=== PATIENT | female | born 1940 | race Hispanic/Latino ===

== ENCOUNTER 2019-01-11 09:05 | Outpatient (CLI) | payer MEDICARE ==
--- NOTE | 2019-01-11 10:27 | Mammography Report ---
LEFT DIGITAL DIAGNOSTIC MAMMOGRAM WITH CAD -- 01/11/2019 LEFT LIMITED BREAST ULTRASOUND INDICATION: Abnormal density on mammography TECHNIQUE: Digital left mammographic imaging was performed. Spot compression views were obtained. Li mited ultrasound was performed. This examination was interpreted with the benefit of Computer-Aided D etection (CAD) analysis. COMPARISON: Screening mammogram 12/07/2018, diagnostic mammogram 01/05/2019, prior screening mammograms 2017, 2017, and 2016 FINDINGS: Breast Density: The breasts are heterogeneously dense, which may obscure small masses. There is no evidence of dominant mass, suspicious calcifications or architectural distortion in the l eft breast. The density of concern appears to resolve with additional view. Ultrasound Findings: Targeted ultrasound evaluation was performed of the area of interest. Benign-blanca earing mild ductal ectasia is seen in the subareolar region. A benign 4 mm simple cyst is seen in the 9:30 subareolar area, 2 cm from the nipple. No suspicious abnormalities are seen. IMPRESSION: No significant lesions are seen BI-RADS Category 2: Benign. Recommend routine screening mammography in one year A "normal" or negative report should not discourage follow up or biopsy of a clinically significant f inding. A written summary of these findings will be mailed to the patient. The patient will be entered into a mammography reporting system which will generate a reminder letter for the patient's next appointmen t at the appropriate interval. According to the [employer], yearly mammograms are recommended starting at age 40 and continuing as long as a woman is in good health. Breast MRI is recommended for women with an blanca roximately 20-25% or greater lifetime risk of breast cancer, including women with a strong family his tory of breast or ovarian cancer and women who have been treated for Hodgkin's disease. Signer Name: Carlo Espinoza MD Signed: 01/11/2019 10:22 AM Workstation Name: [id number]
== END 2019-01-11 09:06 | disposition home or self-care (01) ==
LOC: SPVWC 09:05
PROVIDERS: ATTEND Surgery
DX: N60.02 Solitary cyst of left breast (principal)